=== PATIENT | female | born 1975 ===

== ENCOUNTER 2021-03-14 09:15 | Outpatient (RCR) | payer OTHER, SELFPAY ==
[2021-02-23 10:13] VITALS: BMI 34.6
[2021-02-23 10:16] VITALS: BMI 34.6
== END 2021-05-10 16:22 | disposition home or self-care (01) ==
LOC: ANHDMC 09:15
PROVIDERS: PCP Family Medicine; Visit Provider Internal Medicine Endocrinology, Diabetes & Metabolism
DX: E11.65 Type 2 diabetes mellitus with hyperglycemia (principal); Z71.3 Dietary counseling and surveillance; Z71.89 Other specified counseling
CPT/HCPCS: 97802; G0108